=== PATIENT | male | born 1965 | race African-American/Black ===

== ENCOUNTER → 2019-01-08 | Outpatient (CLI) | payer SELFPAY ==
--- NOTE | 2019-01-09 10:08 | PCVCIMAG ---
APPROVED REPORT Study performed: 01/08/2019 09:03:06 EXAM: Comprehensive 2D, Doppler, and color-flow Echocardiogram Patient Location: Echo lab Status: routine BSA: 2.32 HR: 65 bpmBP: 168/108 mmHg Rhythm: NSR Other Information Study Quality: Adequate Risk Factors: Cardiac Risk Factors: HTN Indications Abnormal ECG Dyspnea 2D Dimensions IVSd: 13.54 (7-11mm) LVDd: 43.44 mm PWd: 13.65 (7-11mm)Ascending Ao: 32.37 (22-36mm) LVDs: 34.03 (25-40mm) Left Atrium: 39.53 (27-40mm) Aortic Root: 31.78 mm LV Single Plane 4CH: 49.09 % LV Single Plane 2CH: 56.99 % Biplane EF: 53.7 % Volumes Left Atrial Volume (Systole) Single Plane 4CH: 54.08 mLSingle Plane 2CH: 87.64 mL LA ESV Index: 31.00 mL/m2 Aortic Valve AoV Peak Ruslan.: 1.46 m/s AO Peak Gr.: 8.53 mmHgLVOT Max P.39 mmHg LVOT Max V: 0.92 m/s Mitral Valve E/A Ratio: 0.8 MV Decel. Time: 240.32 ms MV E Max Ruslan.: 0.48 m/s MV A Ruslan.: 0.60 m/s IVRT: 114.19 ms Pulmonary Valve PV Peak Ruslan.: 1.25 m/sPV Peak Gr.: 6.25 mmHg Pulmonary Vein P Vein S: 0.28 m/sP Vein A: 0.28 m/s P Vein D: 0.40 m/sP Vein A Dur.: 131.5 msec P Vein S/D Ratio: 0.70 Tricuspid Valve TR Peak Ruslan.: 2.31 m/s TR Peak Gr.: 21.32 mmHg Left Ventricle The left ventricle is normal size. There is normal LV segmental wall motion. Mild to moderate concentric left ventricular hypertrophy. Left ventricular systolic function is normal. The left ventricular ejection fraction is within the normal range. LVEF is 55%. Grade I - abnormal relaxation pattern. Right Ventricle The right ventricle is normal size. The right ventricular systolic function is normal. Atria The left atrium size is normal. The right atrium size is normal. Aortic Valve The aortic valve is normal in structure. No aortic regurgitation is present. There is no aortic valvular stenosis. Mitral Valve The mitral valve is normal in structure. Trace mitral regurgitation. No evidence of mitral valve stenosis. Tricuspid Valve The tricuspid valve is normal in structure. Trace tricuspid regurgitation with PAP of 28 mmHg. Pulmonic Valve The pulmonary valve is normal in structure. There is no pulmonic valvular regurgitation. Great Vessels The aortic root is normal in size. IVC is normal in size and collapses >50% with inspiration. Pericardium There is no pericardial effusion. There is no pleural effusion. <Conclusion> The left ventricle is normal size. LVEF is 55%. The aortic valve is normal in structure. The mitral valve is normal in structure. Trace mitral regurgitation. The tricuspid valve is normal in structure. Trace tricuspid regurgitation with PAP of 28 mmHg. The pulmonary valve is normal in structure. There is no pericardial effusion. There is no pleural effusion.
== END | disposition home or self-care (01) ==
LOC: PCVCIMAG 09:08
PROVIDERS: ATTEND Internal Medicine
DX: R94.31 Abnormal electrocardiogram [ECG] [EKG] (principal); R06.00 Dyspnea, unspecified; I10 Essential (primary) hypertension
CPT/HCPCS: 93306

== ENCOUNTER → 2019-01-10 | Outpatient (CLI) | payer SELFPAY ==
--- NOTE | 2019-01-10 11:53 | PCVCIMAG ---
APPROVED REPORT Imaging Protocol: Rest Tc-99m/Stress Tc-99m 1 day Study performed: 01/10/2019 08:38:04 Indication: Abnormal EKG Patient Location: Out-Patient Stress Nurse: Cordelia Shields RN, Abi Brothers RN [place] Tech:Aspen Skaggstigist [facility] Ht: 6 ft 2 in Wt: 234 lbs BSA: 2.32 m2 HR: 71 bpm BP: 169/98 mmHg BMI: 30.04 Rhythm: Normal Sinus Rhythm with ST abnormalities Medical History Medical History: HTN, Hyperlipidemia Medications: Carbidopa-Levodopa, Allopurinol, Lisinopril, Azilect Allergies: No known drug allergies Cardiac Risk Factors: Age Pretest Chest Pain Characteristics: No chest pain Exercise History: Physically active Resting Data Rest SPECT myocardial perfusion imaging was performed in supine position 45 minutes following the intravenous injection of 10.4 mCi of Tc-99m Sestamibi. Time of rest injection: 814 Date: 01/10/2019 Administration Route: IV Administration Site: Right Hand Exercise Stress At peak stress, the patient was injected intravenously with 31.9mCi of Tc-99m Sestamibi. Time of stress injection: 944 Date: 01/10/2019 Administration Route: IV Administration Site: Right Hand Patient continued to exercise for 1 minute(s). Gated Stress SPECT was performed 30 minutes after stress injection. The images were gated to evaluate regional wall motion and calculate left ventricular ejection fraction. Stress Test Details Stress Test: Exercise stress testing was performed using a Juan Miguel protocol. HRMax Heart Rate (APMHR): 166 bpm Resting HR: 71 bpmTarget HR (85% APMHR): 141 bpm Max HR Achieved: 151 bpm % of APMHR: 90 Recovery HR: 95 bpm HR response to stress: Normal HR response to stress BP Resting BP: 169/98 mmHg Max BP: 217/98 mmHg Recovery BP: 165/77 mmHg BP response to stress: Normal blood pressure response to stress. ECG Resting ECG: Normal Sinus Rhythm with ST abnormalities Stress ECG: Sinus Tachycardia with ST abnormalities ST Change: None Maximum ST Deviation: 0 mm Arrhythmia: PVC's with Couplets and Triplets Recovery ECG: Sinus Rhythm with ST abnormalities Clinical Reason for Termination: Fatigue Stress Symptoms: Dyspnea, Leg Fatigue Exercise duration: 6 min 40 sec Exercise capacity: 7.00 METs Overall Exercise Capacity for Age: Poor Scale: Active Angina Score: None Symptoms resolved during recovery. Nurse Comments Held second stage due to Pt's Parkinsonism Stress ECG Conclusion 1. Subjectively negative for ischemia 2. Electrocardiographically equivocal without ST segment changes but development of couplets and triplets of ventricular ectopy with exertion 3. Poor functional capacity Alonzo Treadmill Score is 6.0 which is Low risk. Study Data Post stress, the left ventricular ejection was 71%.. SSS: 1 SRS: 0 SDS: 1 TID = 0.71. Perfusion There is a large area of moderately reduced uptake in the entire segment of the inferoseptal wall which is seen on the stress images and minimally improves on the resting images. This area and is most consistent with attenuation artifact although ischemia cannot be excluded. Wall Motion Normal left ventricular wall motion. Nuclear Conclusion ECG Findings: equivocal Clinical Findings: negative for ischemia Nuclear Findings: equivocal Exercise Capacity: abnormal Left Ventricular Function: normal 1. At least intermediate risk study based on a small region of partial reversibility suggestive of inducible ischemia with development of ventricular dysrhythmias 2. Post exercise left ventricular ejection fraction of 71% <Conclusion> 1. Subjectively negative for ischemia 2. Electrocardiographically equivocal without ST segment changes but development of couplets and triplets of ventricular ectopy with exertion 3. Poor functional capacity
== END | disposition home or self-care (01) ==
LOC: PCVCIMAG 08:29
PROVIDERS: ATTEND Internal Medicine
DX: R94.31 Abnormal electrocardiogram [ECG] [EKG] (principal)
CPT/HCPCS: 78452; 93017; A9500